=== PATIENT | male | born 1945 | race Caucasian/White ===

== ENCOUNTER → 2019-05-30 | Outpatient (CLI) | payer MEDICARE, OTHER ==
[~2019-05-30] MED LIST: ASPI81EC PO
[2019-05-30 18:35] LABS: Appearance, Urine Clear (Clear); Bilirubin, Urine Neg (Neg); Blood, Urine Neg (Neg); Color, Urine Yellow (P-Yellow); Glucose Qualitative, Urine Neg (Neg); Ketones, Urine Neg (Neg); Leukocyte Esterase, Urine 3+ (Neg); Nitrite, Urine Neg (Neg); Protein, Urine 1+ (Neg); Specific Gravity, Urine 1.015 (1.003-1.022); Urobilinogen, Urine NORM (Normal)
[2019-05-30 18:44] LABS: Bacteria Few /hpf; Spermatozoa Few /hpf; Squamous Epithelial Cells Few /hpf (Few)
== END | disposition home or self-care (01) ==
LOC: LAB 17:46 → LAB SHORT 17:46
PROVIDERS: Radiology Therapeutic Radiology
DX: R30.0 Dysuria (principal)
CPT/HCPCS: 81001; 87086

== ENCOUNTER → 2019-06-12 | Outpatient (CLI) | payer MEDICARE, OTHER ==
[2019-06-12 17:38] LABS: Source, Urine Clean Catch
[2019-06-12 19:28] LABS: Blood, Urine 2+ (Neg); Glucose Qualitative, Urine Neg (Neg); Ketones, Urine Neg (Neg); Leukocyte Esterase, Urine 2+ (Neg); Nitrite, Urine Pos (Neg); Protein, Urine 2+ (Neg); Specific Gravity, Urine 1.015 (1.003-1.022); Urobilinogen, Urine 2+ (Normal)
[2019-06-12 19:35] LABS: Appearance, Urine Hazy (Clear); Bilirubin, Urine 1+ (Neg); Color, Urine Orange (P-Yellow)
[2019-06-12 19:41] LABS: Bacteria Mod /hpf; Squamous Epithelial Cells Few /hpf (Few)
== END | disposition home or self-care (01) ==
LOC: LAB 17:36 → LAB SHORT 17:36
PROVIDERS: Radiology Therapeutic Radiology
DX: R30.0 Dysuria (principal)
CPT/HCPCS: 81001; 87086

== ENCOUNTER 2021-08-14 10:46 | Emergency (ER) | payer MEDICARE, OTHER ==
[~2021-08-14] VITALS: Ht 185.4 cm; Wt 140.6 kg
[2021-08-14] MEDS ORDERED: CEPH500 PO ×2 (14:49→14:56)
== END 2021-08-14 15:08 | disposition home or self-care (01) ==
LOC: ER 10:46
DX: L02.412 Cutaneous abscess of left axilla (principal); I48.91 Unspecified atrial fibrillation; Z23 Encounter for immunization; Z86.718 Personal history of other venous thrombosis and embolism; Z86.711 Personal history of pulmonary embolism; Z79.82 Long term (current) use of aspirin; Z79.01 Long term (current) use of anticoagulants; Z79.899 Other long term (current) drug therapy
CPT/HCPCS: 10061; 90471; 90714; 99282-25

== ENCOUNTER 2021-11-21 08:02 | Day surgery (SDC) | payer MEDICARE, OTHER ==
[~2021-11-21 08:02] MED LIST changes: +CEPH500 PO
--- NOTE | 2021-11-21 08:26 | NUR ---
PT IS A&O X 3; CONSENT SIGNED. TEMP IS 97.1 TEMPORAL. BRUNSON REPS IN ROOM FOR LINQ IMPLANT.
--- NOTE | 2021-11-21 09:24 | NUR ---
PT WAS PREPPED WITH CHLORA PREP AND DRAPPED IN THE USUAL STERILE FASHION. PT TOLERATED LOOP IMPLANT WELL. MID-CHEST LOOP SITE SOFT NON-TENDER WITH NO HEMATOM, NO BLEEDING AND INTACT DRESSING. DISCHARGE INSTRUCTIONS REVIEWED AND ALL QUESTIONS ANSWERED. PT AMBULATED OUT.
== END 2021-11-21 22:50 | disposition home or self-care (01) ==
LOC: MHTC 08:02
DX: I47.2 Ventricular tachycardia (principal); R55 Syncope and collapse; I25.10 Atherosclerotic heart disease of native coronary artery without angina pectoris; I48.19 Other persistent atrial fibrillation; I11.0 Hypertensive heart disease with heart failure; I50.20 Unspecified systolic (congestive) heart failure; E11.9 Type 2 diabetes mellitus without complications; G47.30 Sleep apnea, unspecified; Z79.82 Long term (current) use of aspirin; Z79.4 Long term (current) use of insulin; Z79.01 Long term (current) use of anticoagulants
CPT/HCPCS: 33285; C1764

== ENCOUNTER 2022-12-29 05:45 | Emergency (ER) | payer MEDICARE, OTHER ==
[~2022-12-29] VITALS: Ht 185.4 cm; Wt 136.1 kg
[2022-12-29] MEDS ORDERED: TAMSULOSIN HCL0.4 M1 PO (07:45)
[2022-12-29] MEDS ORDERED: METF500 PO (07:45)
[2022-12-29] MEDS ORDERED: CARVEDILOL25 M9 PO (07:45)
[2022-12-29] MEDS ORDERED: BASAGLAR K100 UNIT/8 SQ (07:46)
[2022-12-29] MEDS ORDERED: SOAANZ20 M3 PO (07:46)
[2022-12-29] MEDS ORDERED: GLIP10ER (07:46)
[2022-12-29] MEDS ORDERED: Lisinopril2.5 MG (07:46)
[2022-12-29] MEDS ORDERED: JANTOVEN6 MG PO (07:46)
[2022-12-29] MEDS ORDERED: NOVOLOG FL100 UNIT/3 (07:46)
[2022-12-29] MEDS ORDERED: KLOR-CON M1010 MEQ PO (07:47)
[2022-12-29] MEDS ORDERED: PRAVASTATIN SOD20 MG PO (07:47)
[2022-12-29 07:48] VITALS: BP 127/83
== END 2022-12-29 07:49 | disposition home or self-care (01) ==
LOC: ER 05:45
DX: S91.114A Laceration without foreign body of right lesser toe(s) without damage to nail, initial encounter (principal); E11.40 Type 2 diabetes mellitus with diabetic neuropathy, unspecified; I48.91 Unspecified atrial fibrillation; Z86.718 Personal history of other venous thrombosis and embolism; Z86.711 Personal history of pulmonary embolism; Z79.01 Long term (current) use of anticoagulants; Z79.84 Long term (current) use of oral hypoglycemic drugs; Z79.4 Long term (current) use of insulin; W26.8XXA Contact with other sharp object(s), not elsewhere classified, initial encounter
CPT/HCPCS: 99283

== ENCOUNTER 2023-03-17 04:09 | Day surgery (SDC) | payer MEDICARE, OTHER ==
[~2023-03-17 04:09] MED LIST changes: +BASAGLAR K100 UNIT/8 SQ; +CARVEDILOL25 M9 PO; +GLIP10ER; +JANTOVEN6 MG PO; +KLOR-CON M1010 MEQ PO; +Lisinopril2.5 MG; +METF500 PO; +NOVOLOG FL100 UNIT/3; +PRAVASTATIN SOD20 MG PO; +SOAANZ20 M3 PO; +TAMSULOSIN HCL0.4 M1 PO
== END 2023-03-17 22:43 | disposition home or self-care (01) ==
LOC: WOUND 04:09
DX: E11.622 Type 2 diabetes mellitus with other skin ulcer (principal); Z79.4 Long term (current) use of insulin; L97.812 Non-pressure chronic ulcer of other part of right lower leg with fat layer exposed; I87.311 Chronic venous hypertension (idiopathic) with ulcer of right lower extremity; E11.51 Type 2 diabetes mellitus with diabetic peripheral angiopathy without gangrene; I87.2 Venous insufficiency (chronic) (peripheral)
CPT/HCPCS: A9270; G0463

== ENCOUNTER 2023-03-24 01:15 | Day surgery (SDC) | payer MEDICARE, OTHER | END 2023-03-24 23:08 | disposition home or self-care (01) | LOC: WOUND 01:15 | DX: E11.622 Type 2 diabetes mellitus with other skin ulcer (principal); L97.812 Non-pressure chronic ulcer of other part of right lower leg with fat layer exposed; I87.2 Venous insufficiency (chronic) (peripheral); I87.311 Chronic venous hypertension (idiopathic) with ulcer of right lower extremity; E11.51 Type 2 diabetes mellitus with diabetic peripheral angiopathy without gangrene | CPT/HCPCS: A9270; G0463 ==

== ENCOUNTER 2023-03-31 02:59 | Day surgery (SDC) | payer MEDICARE, OTHER | END 2023-03-31 22:35 | disposition home or self-care (01) | LOC: WOUND 02:59 | DX: E11.622 Type 2 diabetes mellitus with other skin ulcer (principal); L97.812 Non-pressure chronic ulcer of other part of right lower leg with fat layer exposed; I87.311 Chronic venous hypertension (idiopathic) with ulcer of right lower extremity; E11.59 Type 2 diabetes mellitus with other circulatory complications; E11.51 Type 2 diabetes mellitus with diabetic peripheral angiopathy without gangrene; I87.2 Venous insufficiency (chronic) (peripheral); Z79.4 Long term (current) use of insulin | CPT/HCPCS: G0463 ==

== ENCOUNTER 2023-04-07 02:28 | Day surgery (SDC) | payer MEDICARE, OTHER | END 2023-04-07 22:42 | disposition home or self-care (01) | LOC: WOUND 02:28 | DX: Z48.00 Encounter for change or removal of nonsurgical wound dressing (principal); E11.9 Type 2 diabetes mellitus without complications | CPT/HCPCS: G0463 ==

== ENCOUNTER 2024-12-17 15:40 | Inpatient (IN) | payer MEDICARE, OTHER ==
[~2024-12-17] VITALS: Ht 185.4 cm; Wt 140.6 kg
[~2024-12-17 15:40] MED LIST changes: +AMIODARONE HCL400 M2 PO; +Aspir 8181 MG PO; -NOVOLOG FL100 UNIT/3; +NOVOLOG FL100 UNIT/3 SC
[2024-12-17 16:11] LABS: BASOPHILS ABSOLUTE AUTO 0.03 K/mm3 (0.00-0.23); BASOPHILS PERCENT AUTO 0 % (0-2); EOSINOPHILS ABSOLUTE AUTO 0.05 K/mm3 (0.00-0.68); EOSINOPHILS PERCENT AUTO 1 % (0-6); Hematocrit 34.9 % (37.0-53.0); Hemoglobin 11.5 g/dL (13.5-17.5); IMMATURE GRAN ABSOLUTE AUTO 0.02 K/mm3 (0.00-0.10); IMMATURE GRAN PERCENT AUTO 0 % (0-1); LYMPHOCYTES ABSOLUTE AUTO 0.58 K/mm3 (0.84-5.20); LYMPHOCYTES PERCENT AUTO 7 % (21-46); MONOCYTES ABSOLUTE AUTO 0.43 K/mm3 (0.16-1.47); MONOCYTES PERCENT AUTO 5 % (4-13); Mean Corpuscular HGB 32.3 pg (26.0-34.0); Mean Corpuscular Volume 98 fL (80-100); Mean Platelet Volume 10.6 fL (9.1-12.4); NEUTROPHILS ABSOLUTE AUTO 6.82 K/mm3 (1.96-9.15); NEUTROPHILS PERCENT AUTO 86 % (41-73); Platelet Count 208 K/mm3 (150-400); RDW Coefficient Variation 12.6 % (11.7-14.2); Red Blood Cell Count 3.56 M/mm3 (4.30-5.90); White Blood Cell Count 7.93 K/mm3 (4.00-11.30)
[2024-12-17 16:27] LABS: Albumin, Blood 3.3 g/dL (3.4-5.0); Bilirubin, Total 0.3 mg/dL (0.1-1.0); Bun/Creatinine Ratio 36.2 (12.0-20.0); Calcium, Blood 8.3 mg/dL (8.5-10.1); Creatinine, Blood 3.2 mg/dL (0.60-1.20); Globulin, Blood 3.3 g/dL (2.2-4.0); Potassium, Blood 5.4 mmol/L (3.5-5.5); Total Protein, Blood 6.6 g/dL (6.4-8.2)
[2024-12-17] MEDS ORDERED: SOAANZ20 MG PO (16:52)
[2024-12-17 18:55] LABS: CORONAVIRUS COVID-19 AG Negative (NEGATIVE); INFLUENZA A AG Negative (NEGATIVE); INFLUENZA B AG Negative (NEGATIVE)
[2024-12-17] MEDS ORDERED: Ondansetron HCl 2 MG / ML 2ML Vial IV PRN (19:35)
[2024-12-17] MEDS ORDERED: ELIQUIS5 M2 PO (19:54)
[2024-12-17] MEDS ORDERED: METO2.5 PO (19:55)
[2024-12-17] MEDS ORDERED: Amiodarone HCl200 MG PO (19:56)
[2024-12-17] MEDS ORDERED: LISI20 PO (19:58)
[2024-12-17] MEDS ORDERED: GLIP10 PO (19:58)
[2024-12-17] MEDS ORDERED: Furosemide 10 MG/ML 4ML Vial IV SCH (20:00)
[2024-12-17] MEDS ORDERED: POTA10T PO (20:05)
[2024-12-17] MEDS ORDERED: Insulin Glargine-Yfgn 100 Unit/mL 3 ML SYR SC SCH (21:00)
[2024-12-17] MEDS ORDERED: Apixaban 5 MG Tab PO SCH (21:00)
[2024-12-17 21:34] VITALS: BP 133/73
--- NOTE | 2024-12-17 23:14 | NUR ---
TRANSFER NOTE: PT AOX4 ARRIVED FROM ED BY ZULLY MCFADDEN FROM [facility] TO HOSPITAL BED. PT ABLE TO ANSWER QUESTIONS APPROPRIATELY AND ORIENTED TO ROOM AND CALL LIGHT. WHILE GIVING EVENING MEDICATIONS, CHECKED CBG BEFORE ADMINISTERING LONG ACTING AND CBG WAS IN THE 30'S. GIVEN APPLE JUICE AND SNACKS AFTER AN HOUR UP TO THE 50'S. PROVIDER NOTIFIED AND D/C LONG ACTING AND 1/2 AMP D50 ORDERED. PT ASSYMPTOMATIC THROUGH ORDEAL STATING THAT THEY FELT FINE. CONTINUING TO MONITOR.
[2024-12-17] MEDS ORDERED: Dextrose 50% 50 ML Vial IV ONE (23:15)
[2024-12-18] VITALS (7 sets, daily range): BP systolic 99–139; BP diastolic 43–68
--- NOTE | 2024-12-18 04:43 | NUR ---
SHIFT SUMMARY: PT AOX4, CALLS APPROPRIATELY AND ABLE TO MAKE NEEDS KNOWN. PT SBA TO USE THE URINAL BUT UNSTEADY GAIT AND STANDING. PT CAME UP WITH LOW CBGS, SEE NURSING NOTE FOR MORE DETAILS. MEDICATED PER EMR. PT TOLERATED TREATMENT WELL. HALF AMP D50W GIVEN AND CBG BACK TO 108. AFTER SOME TIME, PT ACCIDENTALLY PULLED IV AND NEW IV PLACED. PT STATED FEELING SHAKEY AND CBG CHECKED AGAIN YIELDING 67. GIVEN SOME SNACKS AND APPLEJUICE CBG RECHECKED TO 85. PT OTHERWISE ASSYMPTOMATIC. TOLERTAING MEDICATIONS WELL AND ASKING QUESTIONS. INVOLVED IN CARE. PT SATTING WELL ON RA AND WITH CPAP, ONLY HAVING TO GET UP IN ORDER TO VOID. PT IN BED SLEEPNG, BED IN LOWEST POSITION, CALL LIGHT IN REACH. CONTINUING CARE.
[2024-12-18 05:55] LABS: Calcium, Blood 9.3 mg/dL (8.5-10.1); Magnesium, Blood 2.1 mg/dL (1.6-2.4); Potassium, Blood 5.1 mmol/L (3.5-5.5)
[2024-12-18] MEDS ORDERED: Insulin Human Lispro 100 Units/ML 3ML Syringe SC SCH (07:30)
[2024-12-18] MEDS ORDERED: Carvedilol 25 MG Tab PO SCH (08:00)
[2024-12-18] MEDS ORDERED: Aspirin 81 MG Chew PO SCH (09:00)
[2024-12-18] MEDS ORDERED: Metolazone 2.5 MG Tab PO SCH (09:00)
[2024-12-18] MEDS ORDERED: Tamsulosin HCl 0.4 MG Cap PO SCH (09:00)
[2024-12-18] MEDS ORDERED: Lisinopril 20 MG Tab PO SCH (09:00)
[2024-12-18] MEDS ORDERED: Amiodarone HCl 200 MG Tab PO SCH (09:00)
[2024-12-18] MEDS ORDERED: Lactated Ringer's 1,000 ML IV SCH ×2 (13:00)
[2024-12-18 16:52] LABS: Albumin, Blood 3.4 g/dL (3.4-5.0); Anion Gap 13 mmol/L (3-11); Blood Urea Nitrogen 120 mg/dL (8-24); Bun/Creatinine Ratio 37.7 (12.0-20.0); CO2, Blood 20 mmol/L (21-32); Calcium, Blood 8.8 mg/dL (8.5-10.1); Chloride, Blood 109 mmol/L (98-108); Creatinine, Blood 3.18 mg/dL (0.60-1.20); Glomerular Filtration Rate 19 (60-); Glucose, Blood 148 mg/dL (70-99); Potassium, Blood 5.6 mmol/L (3.5-5.5); Sodium, Blood 136 mmol/L (136-145)
--- NOTE | 2024-12-18 16:52 | NUR ---
SHIFT SUMMARY PT CONT LEVEL OF CARE. PT NOTED TO BE A&OX4 AND ASSIST X1 WITH FWW. DURING DR CONN PHYSICIAN SPOKE TO ABOUT PT BS BEING CL WITH NO INSULIN RECEIVED AT ALL YESTERDAY. THIS NURSE EXPRESSED CONCERN OF GIVING INSULIN AND PT BOTTOMING OUT. PHYSICIAN STATED TO HOLD INSULIN AND CHECK PT BG EVERY 2HR AND MONITOR AND WILL DISCUSS RESTARTING INSULIN TOMORROW 12/19. PHYSICAN ALSO PLACED NEW ORDERS FOR PT TO BE BLADDER SCANNED Q6HR AND IF BLADDER NOTED TO HAVE >300ML STRAIGHT CATH PT. PT NOTED TO HAVE BLADDER SCAN DONE AROUND 1200 AND NOTED 342ML IN BLADDER. STRAIGHT CATH WAS DONE AND 425ML OUTPUT NOTED. PT NOTED TO HAVE HIS SON IN AND OUT THOUGHOUT THIS SHIFT. PT ALSO NOTED TO BE STRICT I&O'S. PT CONT WITH LR @100/HR.
[2024-12-18] MEDS ORDERED: Pravastatin Sodium 20 MG Tab PO SCH (21:00)
[2024-12-19 04:25] VITALS: BP 97/67
--- NOTE | 2024-12-19 04:25 | NUR ---
SHIFT SUMMARY PATIENT IS ALERT AND ORIENTED. PATIENT HAS HAD NO ACUTE EVENTS THIS SHIFT. VITAL SIGNS REVIEWED. PATIENT HAS HAD NO ACUTE EVENTS THIS SHIFT. PATIENT HAS HAD CBG CHECKED Q2 AND HAS BEEN STABLE. PATIENT HAS HAD LR RUNNING AT 100/HR THIS SHIFT. PATIENT HAS HAD NO COMPLAINTS OF PAIN, NAUSEA, SOB OR VOMITTING THIS SHIFT. PATIENT HAS BEEN WEARING CPAP MOST OF SHIFT. PATIENT HAS BEEN STRICT I/OS PATIENT HAS BEEN VOIDING WITH NO ISSUES. BLADDER SCAN DONE WITH NO RESIDUAL OVER 300. BED IN LOCKED AND LOWEST POSITION. CALL LIGHT IN PLACE.
[2024-12-19 06:20] LABS: BASOPHILS ABSOLUTE AUTO 0.03 K/mm3 (0.00-0.23); BASOPHILS PERCENT AUTO 0 % (0-2); EOSINOPHILS ABSOLUTE AUTO 0.27 K/mm3 (0.00-0.68); EOSINOPHILS PERCENT AUTO 4 % (0-6); Hematocrit 32.6 % (37.0-53.0); Hemoglobin 11.1 g/dL (13.5-17.5); IMMATURE GRAN ABSOLUTE AUTO 0.02 K/mm3 (0.00-0.10); IMMATURE GRAN PERCENT AUTO 0 % (0-1); LYMPHOCYTES ABSOLUTE AUTO 1.13 K/mm3 (0.84-5.20); LYMPHOCYTES PERCENT AUTO 15 % (21-46); MONOCYTES PERCENT AUTO 12 % (4-13); Mean Corpuscular HGB 32.1 pg (26.0-34.0); Mean Corpuscular Volume 94 fL (80-100); NEUTROPHILS PERCENT AUTO 68 % (41-73); Platelet Count 191 K/mm3 (150-400); RDW Coefficient Variation 12.7 % (11.7-14.2); RDW Standard Deviation 44.3 fL (35.1-46.3); Red Blood Cell Count 3.46 M/mm3 (4.30-5.90); White Blood Cell Count 7.35 K/mm3 (4.00-11.30)
[2024-12-19 06:47] LABS: Bun/Creatinine Ratio 41.4 (12.0-20.0); Calcium, Blood 8.4 mg/dL (8.5-10.1); Creatinine, Blood 2.49 mg/dL (0.60-1.20); Potassium, Blood 5.3 mmol/L (3.5-5.5)
[2024-12-19 07:23] VITALS: BP 121/67
[2024-12-19 11:38] VITALS: BP 108/54
[2024-12-19] MEDS ORDERED: Lactated Ringer's 1,000 ML IV SCH (12:00)
[2024-12-19] MEDS ORDERED: Glucotrol Xl10 MG PO (15:10)
[2024-12-19] MEDS ORDERED: INSULIN DE100 UNIT/1 SC (15:11)
[2024-12-19 16:25] VITALS: BP 143/68
--- NOTE | 2024-12-19 19:10 | NUR ---
REPORT RECEIVED VERIFIED. PT DOING VERY WELL TODAY, STABLE WITH WALKER ABLE TO USE URINAL WITH MINIMAL ASSIST. PT O2 ON RA IS STABLE WELL HEART RATE IN THE 60S. NO C/O PAIN NO DISTRESS. FAMILY AT BEDSIDE.
[2024-12-19 19:55] VITALS: BP 121/63
[2024-12-19 23:11] VITALS: BP 139/70
[2024-12-20 03:53] VITALS: BP 131/71
--- NOTE | 2024-12-20 06:01 | NUR ---
SHIFT SUMMARY PT ALERT AND ORIENTED TIMES 4. PT IS ADMITTED FOR ACUTE KIDNEY FAILURE. PT HAS HISTORY OF CHF, AFIB, AND DM2. PT HASRIGHT FOREARM IV WITH LR @150/H. PT HAS TELE READING A-FIB W/BB 56. TAKES MEDICATION WHOLE WITH WATER. PT IS BEDSIDE ASSIST TO COMMODE. PT IS ALERT AND ORIENTED TIMES 4. . PT IS COOPERATIVE WITH CARE, ROOM AIR, CONSTANT CARB DIET. . CALL LIGHT WITHIN REACH, RAILS TIMES 2, BED IN LOW POSITION.
[2024-12-20 06:09] LABS: BASOPHILS ABSOLUTE AUTO 0.03 K/mm3 (0.00-0.23); BASOPHILS PERCENT AUTO 0 % (0-2); EOSINOPHILS ABSOLUTE AUTO 0.25 K/mm3 (0.00-0.68); EOSINOPHILS PERCENT AUTO 3 % (0-6); Hematocrit 33.2 % (37.0-53.0); Hemoglobin 11.3 g/dL (13.5-17.5); IMMATURE GRAN ABSOLUTE AUTO 0.02 K/mm3 (0.00-0.10); IMMATURE GRAN PERCENT AUTO 0 % (0-1); LYMPHOCYTES ABSOLUTE AUTO 0.91 K/mm3 (0.84-5.20); LYMPHOCYTES PERCENT AUTO 12 % (21-46); MONOCYTES ABSOLUTE AUTO 0.91 K/mm3 (0.16-1.47); MONOCYTES PERCENT AUTO 12 % (4-13); Mean Corpuscular Volume 94 fL (80-100); Mean Platelet Volume 10.8 fL (9.1-12.4); NEUTROPHILS ABSOLUTE AUTO 5.48 K/mm3 (1.96-9.15); NEUTROPHILS PERCENT AUTO 72 % (41-73); Platelet Count 193 K/mm3 (150-400); RDW Coefficient Variation 12.4 % (11.7-14.2); RDW Standard Deviation 42.6 fL (35.1-46.3); Red Blood Cell Count 3.53 M/mm3 (4.30-5.90)
[2024-12-20 06:28] LABS: Albumin, Blood 3.2 g/dL (3.4-5.0); Bilirubin, Total 0.6 mg/dL (0.1-1.0); Bun/Creatinine Ratio 39.8 (12.0-20.0); Calcium, Blood 8.6 mg/dL (8.5-10.1); Creatinine, Blood 1.86 mg/dL (0.60-1.20); Globulin, Blood 3.3 g/dL (2.2-4.0); Potassium, Blood 5.5 mmol/L (3.5-5.5); Total Protein, Blood 6.5 g/dL (6.4-8.2)
[2024-12-20 07:14] VITALS: BP 112/69
[2024-12-20 11:40] VITALS: BP 113/62
[2024-12-20 16:15] VITALS: BP 122/83
--- NOTE | 2024-12-20 17:39 | NUR ---
SHIFT SUMMARY: PT AO X 4, PLEASANT, LR RUNNING AT 150ML/HR TO MANAGE KIDNEY FUNCTION. PT CAN USE FWW OR CANE TO AMBULATE IF HE CHOSES TO. PT USE CALL LIGHT AND LET NEEDS KNOWN. CALL LIGHT WITHIN REACH AND BED IN LOWEST POSITION.
[2024-12-20 19:35] VITALS: BP 127/72
[2024-12-21 00:13] VITALS: BP 128/71
--- NOTE | 2024-12-21 03:06 | NUR ---
SHIFT SUMMARY A&0X4, MAKES NEEDS KNOWN USING CALL LIGHT APPROPRIATELY, BPs WNL, HR 50-50s & AFIB PER TELEMETRY, NO CARDIAC SX, ROOM AIR AND CPAP DURING SLEEP. LCTA. SATS CONSISTENTLY IN UPPER 90s ON CONTINOUS OXIMETRY. LR INFUSING 150 ML PER HR, TRACE EDEMA ONLY, NO RESP DISTRESS,NO COMPLAINTS OF PAIN, SOMEWHAT EMOTIONAL GOT ADMTTED TO THE HOSPITAL LAST NIGHT IN ROOM DOWN CHILD,WAS REASSURED AFTER WAS ABLE TO GO SEE HER. SBA W/AMBULATION, CONTINENT, GOOD SAFETY AWARENESS & JUDGEMENT OBSERVED. DUE FOR LABS IN A.M.
[2024-12-21 04:23] VITALS: BP 111/68
[2024-12-21 05:54] LABS: Bun/Creatinine Ratio 34.3 (12.0-20.0); Calcium, Blood 8.4 mg/dL (8.5-10.1); Creatinine, Blood 1.66 mg/dL (0.60-1.20); Potassium, Blood 5.1 mmol/L (3.5-5.5)
[2024-12-21 07:32] VITALS: BP 124/73
[2024-12-21] MEDS ORDERED: Empagliflozin 10 MG TAB PO SCH (09:00)
[2024-12-21] MEDS ORDERED: JARDIANCE10 MG PO (11:12)
[2024-12-21] MEDS ORDERED: ASPI81CH PO (11:12)
--- NOTE | 2024-12-21 12:40 | NUR ---
DISCHARGE NOTE PT DISCHARGED TO HOME, PICKED UP BY SON. MEDS SENT TO [facility]. IV REMOVED. TELE RETURNED. DISCHARGE PACKET SENT WITH THE PT.
== END 2024-12-21 12:29 | disposition home or self-care (01) | DRG 683 ==
LOC: ER 15:40 → MEDS 19:30 → ERHOLD 19:30 → MEDS 21:27
PROVIDERS: Internal Medicine; Nurse Practitioner Acute Care; Student in an Organized Health Care Education/Training Program; ADMIT Internal Medicine
DX: N17.9 Acute kidney failure, unspecified (principal); E87.20 Acidosis, unspecified; I48.20 Chronic atrial fibrillation, unspecified; Z68.41 Body mass index [BMI] 40.0-44.9, adult; I50.22 Chronic systolic (congestive) heart failure; E11.22 Type 2 diabetes mellitus with diabetic chronic kidney disease; N18.31 Chronic kidney disease, stage 3a; N40.0 Benign prostatic hyperplasia without lower urinary tract symptoms; I48.91 Unspecified atrial fibrillation; E78.5 Hyperlipidemia, unspecified; E66.01 Morbid (severe) obesity due to excess calories; E11.649 Type 2 diabetes mellitus with hypoglycemia without coma; I34.0 Nonrheumatic mitral (valve) insufficiency; G47.33 Obstructive sleep apnea (adult) (pediatric); R00.1 Bradycardia, unspecified; Z79.01 Long term (current) use of anticoagulants; Z86.718 Personal history of other venous thrombosis and embolism; Z86.711 Personal history of pulmonary embolism; Z79.4 Long term (current) use of insulin; Z90.49 Acquired absence of other specified parts of digestive tract; Z85.46 Personal history of malignant neoplasm of prostate; Z92.3 Personal history of irradiation
CPT/HCPCS: 36415; 51798; 71046; 76770; 80048; 80053; 80069; 82947; 83735; 83880; 85025; 87428-QW; 93005; 93010; 94762; 97116; 97161; 97530; 99285-25; A9270; J1815; J1940; J7120; J7799